=== PATIENT | female | born 1965 | race Caucasian/White ===

== ENCOUNTER 2017-06-26 09:16 | Emergency (ER) | payer MEDICAID ==
[~2017-06-26] VITALS: Ht 162.6 cm; Wt 59.4 kg
[2017-06-26 10:20] LABS: AMPHETAMINE/METHAMPHETAMINE NEG (NEG); BARBITURATES NEG (NEG); BENZODIAZEPINES NEG (NEG); CANNABINOIDS POS (NEG); COCAINE NEG (NEG); METHADONE NEG (NEG); OPIATES POS (NEG); PHENCYCLIDINE NEG (NEG)
[2017-06-26] MEDS: KETOROLAC 30 MG/ML VIAL. IV ONE (10:20)
[2017-06-26] MEDS: diphenhydrAMINE 50 MG/ML VIAL IVP ONE (10:21)
[2017-06-26] MEDS: ONDANSETRON PF 4 MG/2 ML VIAL. IV ONE (10:22)
--- NOTE | 2017-06-26 10:41 | PHYS DOC ---
Past History Past Medical History: Bipolar, Hypothyroid, Migraines, Other Past Surgical History: Other Smoking: Cigarettes Additional Smoking Information: pt states she wears patch and smokes 4 cigerettes/day Alcohol Use: None Drug Use: Marijuana Social History Narrative: pt says she smokes marijuana for her HAs Adult General Chief Complaint Chief Complaint: HEADACHE HPI HPI 52-year-old female patient with multiple medical problems including migraine headaches and chronic abdominal pain visiting from [place] complaining of global sharp headache for the last 6 days as a constant pain that didn't get better with [id number] pain medication. Patient became sober that started 6 days ago and rated her pain 10/10. Patient complaining of nausea without vomiting. Patient denies fever, focal neuro deficit, URI symptoms, head injury. She states her headache is like her previous episodes of migraine headache. Patient also states she has had chronic abdominal pain for 10 years without new changes recently. Review of Systems Review of Systems Constitutional: Denies fever or chills [] Eyes: Denies change in visual acuity, redness, or eye pain [] HENT: Denies nasal congestion or sore throat [] Respiratory: Denies cough or shortness of breath [] Cardiovascular: No additional information not addressed in HPI [] GI: Reports abdominal pain, nausea, denies vomiting, bloody stools or diarrhea [ ] : Denies dysuria or hematuria [] Musculoskeletal: Denies back pain or joint pain [] Integument: Denies rash or skin lesions [] Neurologic: Reports headache, denies focal weakness or sensory changes [] Endocrine: Denies polyuria or polydipsia [] All other systems were reviewed and found to be within normal limits, except as documented in this note. Current Medications Current Medications Current Medications Medications (Trade) Dose Ordered Sig/Sandhya Start Time Stop Time Status Last Admin Dose Admin Diphenhydramine HCl (Benadryl) 50 mg 1X ONCE 06/26/17 10:20 06/26/17 10:22 DC 06/26/17 10:21 50 MG Ketorolac Tromethamine (Toradol) 30 mg 1X ONCE 06/26/17 10:20 06/26/17 10:22 DC 06/26/17 10:20 30 MG Ondansetron HCl (Zofran) 4 mg 1X ONCE 06/26/17 10:20 06/26/17 10:22 DC 06/26/17 10:22 4 MG Allergies Allergies Allergies Coded Allergies Type Severity Reaction Last Updated Verified Penicillins Allergy Unknown 06/26/17 Yes tramadol Allergy Unknown 06/26/17 Yes Physical Exam Physical Exam Constitutional: Well nourished, no acute distress, non-toxic appearance, anxious. [] HENT: Normocephalic, atraumatic, bilateral external ears normal, oropharynx moist, no oral exudates, nose normal. [] Eyes: PERRLA, EOMI, conjunctiva normal, no discharge. [] Neck: Normal range of motion, no tenderness, supple, no stridor. [] Cardiovascular:Heart rate regular rhythm, no murmur [] Lungs & Thorax: Bilateral breath sounds clear to auscultation [] Abdomen: Bowel sounds normal, soft, no tenderness, no masses, no pulsatile masses. [] Skin: Warm, dry, no erythema, no rash. [] Back: No tenderness, no CVA tenderness. [] Extremities: No tenderness, no cyanosis, no clubbing, ROM intact, no edema. [] Neurologic: Alert and oriented X 3, normal motor function, normal sensory function, no focal deficits noted. [] Psychologic: Anxious, judgement normal, mood normal. [] Current Patient Data Vital Signs Vital Signs Date Time Temp Pulse Resp B/P (MAP) Pulse Ox O2 Delivery O2 Flow Rate FiO2 06/26/17 09:30 97.9 85 98 Room Air Lab Results Laboratory Tests Test 06/26/17 09:55 Urine Opiates Screen Pos (NEG) Urine Methadone Screen Neg (NEG) Urine Barbiturates Neg (NEG) Urine Phencyclidine Screen Neg (NEG) Urine Amphetamine/Methamphetamine Neg (NEG) Urine Benzodiazepines Screen Neg (NEG) Urine Cocaine Screen Neg (NEG) Urine Cannabinoids Screen Pos (NEG) Urine Ethyl Alcohol Neg (NEG) EKG EKG [] Radiology/Procedures Radiology/Procedures [] Course & Med Decision Making Course & Med Decision Making Evaluation of patient in ER showed 52-year-old female patient with multiple medical problems who moved from another state this area recently and complaining of migraine headache and chronic abdominal pain. Patient had unremarkable physical exam except for anxiety. Patient treated with Toradol, Benadryl, Zofran and a stress she got the IV medication she called her ride to pick her up from hospital and was in [place] to get her prescription to go home sooner. Nacho Disclaimer Keelyon Disclaimer This electronic medical record was generated, in whole or in part, using a voice recognition dictation system. Departure Departure: Impression: Primary Impression: Migraine headache Additional Impressions: Tobacco abuse Tobacco abuse counseling Marijuana abuse Opiate misuse Disposition: HOME, SELF-CARE (At 1045) Condition: IMPROVED Patient Instructions: Migraine Headache, Smoking Cessation Additional Instructions: Drink plenty of liquids Follow-up with your primary care physician in 3-5 days Return to ER if not getting better Scripts Promethazine Hcl (PROMETHAZINE HCL) 25 Mg Tablet 1 TAB PO PRN Q6HRS, #10 TAB Prov: CAMILA VU MD 06/26/17 Naproxen (NAPROSYN) 500 Mg Tablet 1 TAB PO BID, #14 TAB 2 Refills Prov: CAMILA VU MD 06/26/17 Problem Qualifiers CAMILA VU MD Jun 26, 2017 10:41
[2017-06-26] MEDS ORDERED: PROM25TA10 PO (10:47)
[2017-06-26] MEDS ORDERED: NAPR-683 PO (10:47)
[2017-06-26 10:50] VITALS: BP 102/63
== END 2017-06-26 11:00 | disposition home or self-care (01) ==
LOC: ER 09:16
DX: G43.909 Migraine, unspecified, not intractable, without status migrainosus (principal); F12.10 Cannabis abuse, uncomplicated; F11.90 Opioid use, unspecified, uncomplicated; F17.210 Nicotine dependence, cigarettes, uncomplicated; G89.29 Other chronic pain; E03.9 Hypothyroidism, unspecified; F32.9 Major depressive disorder, single episode, unspecified; Z88.0 Allergy status to penicillin; Z88.6 Allergy status to analgesic agent
CPT/HCPCS: 36415; 80307; 96374; 96375; 99284; J1200; J1885; J2405; G0479

== ENCOUNTER 2017-07-17 12:13 | Emergency (ER) | payer MEDICAID ==
[~2017-07-17] VITALS: Ht 162.6 cm; Wt 59.4 kg
[~2017-07-17 12:13] MED LIST: NAPR-683 PO; PROM25TA10 PO
[2017-07-17] MEDS ORDERED: IV NORMAL SALINE 1,000ML 1,000 ML IV ONE (12:30)
--- NOTE | 2017-07-17 12:34 | PHYS DOC ---
Past History Past Medical History: Bipolar, Hypothyroid, Migraines, Other Additional Past Medical Histor: Hep C, "blood clot" in brain Past Surgical History: Other Smoking: Cigarettes Alcohol Use: None Drug Use: Marijuana Adult General Chief Complaint Chief Complaint: HEADACHE HPI HPI Patient is a 52-year-old white female who presents to the emergency department for evaluation. She states that she has had a gradually worsening headache for the past month, described as the left side of her head, radiating diffusely around her head, and he feels like her head is on fire. She has had some nausea but no vomiting. She denies any vision changes, neck pain, stiffness, fevers, numbness, or weakness to she states she's had recurrent headaches in the past, ever since developing a "blood clot" in her brain about 6 years ago, for which she takes Xarelto. She denies any recent head trauma and has had similar headaches to this in the past. There are no alleviating, or exacerbating factors to her symptoms. She normally lives in [place], but is here visiting family. She was seen in the emergency department about 3 weeks ago for similar headache. She states the headache has gradually progressed and been worsening since that time. She has not had any abrupt onset of "thunderclap" headaches. Review of Systems Review of Systems Constitutional: Denies fever or chills [] Eyes: Denies change in visual acuity, redness, or eye pain [] HENT: Denies nasal congestion or sore throat [] Respiratory: Denies cough or shortness of breath [] Cardiovascular: The patient denies any shortness of breath, chest pain, palpitations, or orthopnea[] GI: Denies abdominal pain, nausea, vomiting, bloody stools or diarrhea [] : Denies dysuria or hematuria [] Musculoskeletal: Denies back pain or joint pain [] Integument: Denies rash or skin lesions [] Neurologic: Denies headache, focal weakness or sensory changes [] Endocrine: Denies polyuria or polydipsia [] All other systems were reviewed and found to be within normal limits, except as documented in this note. Current Medications Current Medications Current Medications Medications (Trade) Dose Ordered Sig/Sandhya Start Time Stop Time Status Last Admin Dose Admin Diphenhydramine HCl (Benadryl) 25 mg 1X ONCE 07/17/17 12:30 07/17/17 12:31 UNV Prochlorperazine Edisylate (Compazine) 10 mg 1X ONCE 07/17/17 12:30 07/17/17 12:31 UNV Sodium Chloride 1,000 ml @ 1,000 mls/hr 1X ONCE 07/17/17 12:30 07/17/17 13:29 UNV Allergies Allergies Allergies Coded Allergies Type Severity Reaction Last Updated Verified Penicillins Allergy Unknown 06/26/17 Yes tramadol Allergy Unknown 06/26/17 Yes Physical Exam Physical Exam PHYSICAL EXAM: CONSTITUTIONAL: Well developed, well nourished HEAD: normocephalic, atraumatic EENT: PERRL, EOMI. Conjunctivae normal color, sclerae non-icteric; moist mucous membranes. NECK: Supple, non-tender; no meningismus. LUNGS: Lungs CTA, breathing even and unlabored. Normal air movement. HEART: Regular rate and rhythm, no murmur CHEST: No deformity; non-tender ABDOMEN: The abdomen is soft, and non-tender, no masses or bruits. EXTREM: Normal ROM; no deformity, no calf tenderness. Normal pulses palpable in all extremities. There is no pedal edema. SKIN: No rash; no diaphoresis NEURO: Alert; normal speech and cognition; CN's grossly intact; strength grossly intact without focal deficit. BACK: No CVA TTP. PSYCHIATRIC: Patient exhibits an anxious affect. EKG EKG [] Radiology/Procedures Radiology/Procedures PROCEDURE: CT HEAD WO CONTRAST EXAM: Head CT without contrast. HISTORY: Headache. TECHNIQUE: Computed tomographic images of the head were obtained without contrast. *One or more of the following individualized dose reduction techniques were utilized for this examination: 1. Automated exposure control. 2. Adjustment of the mA and/or kV according to patient size. 3. Use of iterative reconstruction technique. COMPARISON: None. FINDINGS: There is no acute or subacute extra-axial or intraparenchymal hemorrhage. There is no mass effect or midline shift. There is no hydrocephalus. The meier-white matter differentiation pattern is intact. There is ethmoid and maxillary sinus mucosal thickening. The mastoid air cells are clear. No calvarial lesion is seen. IMPRESSION: No acute intracranial findings. Course & Med Decision Making Course & Med Decision Making Pertinent Imaging studies reviewed. (See chart for details) 1:40 PM: The patient's condition remains stable. Her headache is improved after administration of the above medications. The patient's CT has been reviewed with the patient. I discussed test results, the need for close follow-up, establishing care with a neurologist for her recurrent headaches that she is to remain in this area for a period of time, and return precautions were discussed in detail. There is nothing on the patient's history or headache history suggestive of a serious etiology of her headache. Her headache was not abrupt in onset and she is on an anticoagulant, making subtle subarachnoid hemorrhage unlikely. Her headache has been going on for weeks, she is afebrile without meningismus making meningitis or other infectious etiology unlikely. She has had chronic recurrent headaches. Dragon Disclaimer Dragon Disclaimer This electronic medical record was generated, in whole or in part, using a voice recognition dictation system. Departure Departure: Impression: Primary Impression: Migraine headache Disposition: 01 HOME, SELF-CARE Condition: STABLE Referrals: PCP,ZANE (PCP) Additional Instructions: Follow-up with neurology, Dr. Lundberg, at [phone]. Please call to schedule appointment. Scripts Sumatriptan Succinate (IMITREX) 50 Mg Tablet 1 TAB PO Q4HRS PRN for HEADACHE, #20 TAB 0 Refills Maximum dose 200 mg per day Prov: MYNOR LOPEZ MD 07/17/17 MYNOR LOPEZ MD July 17, 2017 12:34
--- NOTE | 2017-07-17 12:45 | RAD ---
EXAM: Head CT without contrast. HISTORY: Headache. TECHNIQUE: Computed tomographic images of the head were obtained without contrast. *One or more of the following individualized dose reduction techniques were utilized for this examination: 1. Automated exposure control. 2. Adjustment of the mA and/or kV according to patient size. 3. Use of iterative reconstruction technique. COMPARISON: None. FINDINGS: There is no acute or subacute extra-axial or intraparenchymal hemorrhage. There is no mass effect or midline shift. There is no hydrocephalus. The meier-white matter differentiation pattern is intact. There is ethmoid and maxillary sinus mucosal thickening. The mastoid air cells are clear. No calvarial lesion is seen. IMPRESSION: No acute intracranial findings. Electronically signed by: Rebeca Medeiros MD (07/17/2017 12:42 PM) [id number]
[2017-07-17] MEDS ORDERED: PROCHLORPERAZINE 10 MG/2 ML VIAL. IV ONE (12:50)
[2017-07-17] MEDS ORDERED: diphenhydrAMINE 50 MG/ML VIAL IVP ONE (12:50)
[2017-07-17] MEDS ORDERED: SUMA50TA3 PO (13:45)
[2017-07-17 13:52] VITALS: BP 92/62
== END 2017-07-17 13:52 | disposition home or self-care (01) ==
LOC: ER 12:13
DX: G43.909 Migraine, unspecified, not intractable, without status migrainosus (principal); F31.9 Bipolar disorder, unspecified; E03.9 Hypothyroidism, unspecified; F17.210 Nicotine dependence, cigarettes, uncomplicated; F12.10 Cannabis abuse, uncomplicated; Z86.19 Personal history of other infectious and parasitic diseases; Z88.0 Allergy status to penicillin; Z88.6 Allergy status to analgesic agent
CPT/HCPCS: 70450; 96374; 96375; 99284; J0780; J1200; J7030

== ENCOUNTER 2017-08-19 08:00 | Emergency (ER) | payer SELFPAY ==
[~2017-08-19] VITALS: Ht 162.6 cm; Wt 59.4 kg
[~2017-08-19 08:00] MED LIST changes: +SUMA50TA3 PO
[2017-08-19 08:19] VITALS: BP 140/109
[2017-08-19] MEDS ORDERED: ACETAMINOPHEN 325 MG TABLET PO ONE ×2 (08:29→08:30)
--- NOTE | 2017-08-19 10:17 | ED.ADGEN ---
Past History Past Medical History: Anxiety, Asthma, Bipolar, Depression, GERD, High Cholesterol, Hypothyroid, Migraines, Other Additional Past Medical Histor: Hep C, "blood clot" in brain Past Surgical History: Other Smoking: Cigarettes Alcohol Use: None Drug Use: Marijuana Adult General Chief Complaint Chief Complaint Left hand pain HPI HPI Patient is a 52-year-old female with history of bipolar disorder, chronic wrist joint pain who recently [place] this area [place] of state who presents with left hand pain. Patient denies trauma or recent strain injury and states she is previously been evaluated for her wrist and hand pain and had x-rays taken. She states she was told she has osteoarthritis but does not believe it. Currently reports pain in the palm of hand and mid fingers, Reports some pain pain range of motion and mobility to fully extend and flex fingers and hands. No deformity, swelling, redness noted. No acute symptoms or complaints. Review of Systems Review of Systems Review symptoms as per history of present illness.] All other systems were reviewed and found to be within normal limits, except as documented in this note. Current Medications Current Medications Current Medications Medications (Trade) Dose Ordered Sig/Sandhya Start Time Stop Time Status Last Admin Dose Admin Acetaminophen (Tylenol) 325 mg STK-MED ONCE 08/19/17 08:29 08/19/17 08:30 DC Allergies Allergies Allergies Coded Allergies Type Severity Reaction Last Updated Verified Penicillins Allergy Unknown 06/26/17 Yes tramadol Allergy Unknown 06/26/17 Yes Physical Exam Physical Exam Constitutional: Well developed, well nourished, no acute distress, non-toxic appearance. [] HENT: Normocephalic, atraumatic, bilateral external ears normal, oropharynx moist, no oral exudates, nose normal. [] Extremities: Left hand/wrist, no deformity, swelling, redness. Pain localizes in the mid palm and base of the palm. Normal alignment. [] Neurologic: Alert and oriented X 3, normal motor function, normal sensory function, no focal deficits noted. [] Psychologic: Affect is anxious.. [] Current Patient Data Vital Signs Vital Signs Date Time Temp Pulse Resp B/P (MAP) Pulse Ox O2 Delivery O2 Flow Rate FiO2 08/19/17 08:19 98.1 85 20 100 EKG EKG [] Radiology/Procedures Radiology/Procedures [] Course & Med Decision Making Course & Med Decision Making Pertinent Labs and Imaging studies reviewed. (See chart for details) [Chronic hand pain with previous diagnosis of osteoarthritis per patient report. No new injury. Patient states she is unable to move fingers but is able to demonstrate moving her hand with normal range of motion as examiner leaves the room. I discussed with patient pain options and the need to follow up with local primary care physician. The patient then became very loud and verbally hostile towards me and threatening resting alternative medical opinion. I explained that I am the only provider and duty gave her a list of local primary care physician she may see in follow-up. I explained to her that further workup is not indicated the emergency department and that I am uncomfortable prescribing pain medication. Patient proceeded to yell at additional staff members. ] Final Impression Final Impression [1. chronic left hand pain] Nacho Disclaimer Dragon Disclaimer This electronic medical record was generated, in whole or in part, using a voice recognition dictation system. JASBIR BRUMFIELD DO Aug 19, 2017 10:17
== END 2017-08-19 08:48 | disposition home or self-care (01) ==
LOC: ER 08:00
DX: M79.642 Pain in left hand (principal); G89.29 Other chronic pain; F41.9 Anxiety disorder, unspecified; J45.909 Unspecified asthma, uncomplicated; E03.9 Hypothyroidism, unspecified; E78.00 Pure hypercholesterolemia, unspecified; G43.909 Migraine, unspecified, not intractable, without status migrainosus; F17.210 Nicotine dependence, cigarettes, uncomplicated; Z88.6 Allergy status to analgesic agent; Z88.0 Allergy status to penicillin
CPT/HCPCS: 99281

== ENCOUNTER → 2017-10-23 | Outpatient (CLI) | payer OTHER ==
[2017-10-23 10:43] LABS: BASO # 0.1 x10^3/uL (0.0-0.2); BASO % 1 % (0-3); EOS # 0.2 x10^3/uL (0.0-0.7); EOS % 5 % (0-3); HEMATOCRIT 42.1 % (36.0-47.0); LYMPH # 1.7 x10^3/uL (1.0-4.8); LYMPH % 35 % (24-48); MEAN CORPUSCULAR HEMOGLOBIN 30 pg (25-35); MEAN CORPUSCULAR HGB CONC 33 g/dL (31-37); MEAN CORPUSCULAR VOLUME 92 fL (79-100); MONO # 0.4 x10^3/uL (0.0-1.1); MONO % 8 % (0-9); NEUT # 2.5 x10^3uL (1.8-7.7); NEUT % 51 % (31-73); PLATELET COUNT 176 x10^3/uL (140-400); RED BLOOD COUNT 4.61 x10^6/uL (3.50-5.40); RED CELL DISTRIBUTION WIDTH 15.7 % (11.5-14.5); WHITE BLOOD COUNT 4.9 x10^3/uL (4.0-11.0)
[2017-10-23 10:51] LABS: ALBUMIN 3.5 g/dL (3.4-5.0); CALCIUM 8.9 mg/dL (8.5-10.1); CREATININE 0.8 mg/dL (0.6-1.0); POTASSIUM 4.5 mmol/L (3.5-5.1); TOTAL BILIRUBIN 0.6 mg/dL (0.2-1.0); TOTAL PROTEIN 7.1 g/dL (6.4-8.2)
[2017-10-23 11:47] LABS: SEDIMENTATION RATE 5 (0-25)
[2017-10-23 14:08] LABS: THYROID STIM HORMONE (TSH) 0.478 uIU/mL (0.358-3.740)
--- NOTE | 2017-10-23 17:16 | RAD ---
History: Hip pain. Comparison: None. Findings: AP view of the pelvis including both hips. Frog-leg view of each hip. No acute fracture or dislocation is identified. No significant degeneration is seen. Lower lumbar spine and lumbosacral junction demonstrates fixation hardware. Impression: Unremarkable radiograph of the hips. Electronically signed by: Mitesh Bates MD (10/23/2017 5:12 PM) [facility]
[2017-10-23 19:12] LABS: ESTRADIOL LEVEL <5.0 pg/mL (.); PROGESTERONE 0.2 ng/mL (.); T3 TOTAL 100 ng/dL (71-180); TESTOSTERONE TOTAL 18 ng/dL (3-41); THYROXINE 4.8 ug/dL (4.5-12.0)
[2017-10-25 09:08] LABS: HCV ULTRA QUANT PCR HCV Not Detected IU/mL (.)
[2017-10-27 09:11] LABS: DHEA 384 ng/dL (31-701)
== END | disposition home or self-care (01) ==
LOC: RAD 09:32
PROVIDERS: ATTEND General Practice
DX: M25.552 Pain in left hip (principal); M25.551 Pain in right hip; M81.0 Age-related osteoporosis without current pathological fracture; E55.9 Vitamin D deficiency, unspecified; E03.9 Hypothyroidism, unspecified; N95.1 Menopausal and female climacteric states; F41.9 Anxiety disorder, unspecified; E78.00 Pure hypercholesterolemia, unspecified; F32.9 Major depressive disorder, single episode, unspecified; G43.909 Migraine, unspecified, not intractable, without status migrainosus; J45.909 Unspecified asthma, uncomplicated; Z86.19 Personal history of other infectious and parasitic diseases; Z88.0 Allergy status to penicillin; Z88.6 Allergy status to analgesic agent
CPT/HCPCS: 36415; 73521; 80053; 80061; 82306; 82626; 82670; 82679; 83036; 84144; 84403; 84436; 84443; 84480; 85025; 85651; 86705; 86709; 86803; 87340; 87521

== ENCOUNTER → 2017-11-04 | Outpatient (CLI) | payer OTHER ==
--- NOTE | 2017-11-04 14:03 | RAD ---
EXAM: Dual energy x-ray absorptiometry (DEXA). HISTORY: Postmenopausal female presents for osteoporosis screening. COMPARISON: None. TECHNIQUE: Dual energy x-ray absorptiometry of the lumbar spine, left radius and right hip was performed. Calculation of bone mineral density based on standard deviations above or below the expected young adult normal value (T-score) was completed. FINDINGS: The average bone mineral density in the first through third lumbar vertebrae is 1.127 g/cmxcm, corresponding with a T-score of -0.4. The average total bone mineral density in the right hip is 0.749 g/cmxcm, corresponding with a T-score of -1.7. The average bone mineral density of the right radius is 0.624 g/cmx cm, corresponding with a T-score of -1.3. IMPRESSION: 1. Osteopenia measured at the right hip and left forearm. 2. Normal bone mineral density measured at the lumbar spine. Note: Definitions established by the World Health Organization: 1. Normal: T-score is -1.0 or above. 2. Osteopenia: T-score is between -1.0 and -2.5 . 3. Osteoporosis: T-score is -2.5 or below. Electronically signed by: Rebeca Medeiros MD (11/04/2017 2:00 PM) [place] [id number]
== END | disposition home or self-care (01) ==
LOC: DXRAD 10:46
PROVIDERS: ATTEND General Practice
DX: Z13.820 Encounter for screening for osteoporosis (principal); M85.88 Other specified disorders of bone density and structure, other site; E55.9 Vitamin D deficiency, unspecified; E78.00 Pure hypercholesterolemia, unspecified; E03.9 Hypothyroidism, unspecified; J45.909 Unspecified asthma, uncomplicated; G43.909 Migraine, unspecified, not intractable, without status migrainosus; Z87.891 Personal history of nicotine dependence; Z86.19 Personal history of other infectious and parasitic diseases; Z88.0 Allergy status to penicillin; Z88.6 Allergy status to analgesic agent
CPT/HCPCS: 77080; 77081